=== PATIENT | male | born 1980 ===

== ENCOUNTER 2022-08-02 17:42 | Emergency (ER) | payer BC ==
[2022-08-02] MEDS ORDERED: Sodium Chloride 0.9% 10 ML Syringe FLUSH PRN (18:02)
[2022-08-02] MEDS ORDERED: Sodium Chloride 0.9% 1,000 ML IV SCH (18:15)
[2022-08-02] MEDS ORDERED: Sodium Chloride 0.9% 500 ML IV ONE (18:31)
[2022-08-02] MEDS ORDERED: Thiamine 200 MG/2 ML MDV IVPUSH ONE (18:36)
== END 2022-08-02 18:56 ==
LOC: FB.ED 17:42
DX: S06.6X0A Traumatic subarachnoid hemorrhage without loss of consciousness, initial encounter (principal); S06.2X0A Diffuse traumatic brain injury without loss of consciousness, initial encounter; S01.01XA Laceration without foreign body of scalp, initial encounter; R41.82 Altered mental status, unspecified; Z72.0 Tobacco use; W10.8XXA Fall (on) (from) other stairs and steps, initial encounter
CPT/HCPCS: 36415; 83690; 83735; 85610; 85730; 93005; 93010; 96361; 96374; 99284-25; 99285; J3411; J3490; J7030